=== PATIENT | female | born 1965 | race Caucasian/White ===

== ENCOUNTER 2018-05-10 18:13 | Emergency (ER) | payer OTHER, MEDICARE ==
[2018-05-10 18:28] VITALS: RESP 18
[2018-05-10 19:19] LABS: Basophils # (A) 0.1 k/uL (0-0.2); Basophils % (A) 1 %; Eosinophils # (A) 0.2 k/uL (0-0.7); Eosinophils % (A) 3 %; HCT 43.8 % (34.0-46.0); HGB 14.5 gm/dL (11.4-16.0); Lymphocytes # (A) 2.4 k/uL (1.0-4.8); Lymphocytes % (A) 44 %; MCH 31.2 pg (25.0-35.0); MCHC 33.2 g/dL (31.0-37.0); MCV 93.9 fL (80.0-100.0); Mean Platelet Volume 7.5; Monocytes # (A) 0.2 k/uL (0-1.0); Monocytes % (A) 4 %; Neutrophils # (A) 2.5 k/uL (1.3-7.7); Neutrophils % (A) 46 %; Platelet Count 252 k/uL (150-450); RBC 4.66 m/uL (3.80-5.40); WBC 5.4 k/uL (3.8-10.6)
[2018-05-10 19:27] LABS: Albumin 4.6 g/dL (3.5-5.0); Calcium 9.7 mg/dL (8.4-10.2); Potassium 4.2 mmol/L (3.5-5.1); Total Bilirubin 0.3 mg/dL (0.2-1.3); Total Protein 7.3 g/dL (6.3-8.2)
[2018-05-10 19:32] LABS: Appearance,Urine Cloudy (Clear); Bacteria,Urine Rare /hpf; Bilirubin,Urine Negative (Negative); Blood,Urine Negative (Negative); Color,Urine Light Yellow; Glucose,Urine (UA) Negative (Negative); Ketones,Urine Negative (Negative); Leukocyte Esterase,Urine Trace (Negative); Mucus,Urine Rare /hpf; Nitrite,Urine Negative (Negative); PH, Urine 6.5 (5.0-8.0); Protein,Urine Negative (Negative); RBC,Urine <1 /hpf (0-5); Specific Gravity,Urine 1.006 (1.001-1.035); Squamous Epithelial Cell,Urine 9 /hpf (0-4); Urobilinogen,Urine <2.0 mg/dL (<2.0); WBC,Urine 5 /hpf (0-5)
[2018-05-10] MEDS ORDERED: SODIUM CHLORIDE 0.9% 1,000 ML IV ONE (21:59)
[2018-05-10] MEDS ORDERED: HYDROmorphone 0.5 MG/0.5 ML SYRINGE IVP STA (22:00)
--- NOTE | 2018-05-10 22:31 | ED ---
General Adult HPI - General Chief complaint: Abdominal Pain Stated complaint: rt side pain Time Seen by Provider: 05/10/18 21:52 Source: patient, RN notes reviewed, old records reviewed Mode of arrival: wheelchair Limitations: no limitations - History of Present Illness Initial comments: 52-year-old female presenting with right lower quadrant abdominal pain. Patient has had on and off pain for the past one month. She was seen by her primary care physician who felt this may be related to hernia and ordered an ultrasound. While patient was driving home her pain became much more severe. This was worse with movement. She had some nausea, no vomiting. She does have baseline diarrhea although this is unchanged and she has a history of IBS. Denies any upper abdominal pain. Denies chest pain or shortness of breath. Denies fever or chills. Pain was severe and nonradiating. - Related Data Home Medications Medication Instructions Recorded Confirmed ALPRAZolam [Xanax] 0.25 mg PO BID PRN 05/10/18 05/10/18 Acetaminophen/Diphenhydramine 1 tab PO HS PRN 05/10/18 05/10/18 [Tylenol PM Extra Strength] Butalb/APAP/Caff 50-325-40Mg 1 tab PO Q4H PRN 05/10/18 05/10/18 [Fioricet 50-325-40] Dicyclomine [Bentyl] 10 mg PO BID 05/10/18 05/10/18 Omeprazole [PriLOSEC] 40 mg PO DAILY 05/10/18 05/10/18 Topiramate [Topamax] 100 mg PO BID 05/10/18 05/10/18 amLODIPine [Norvasc] 5 mg PO DAILY 05/10/18 05/10/18 Allergies Allergy/AdvReac Type Severity Reaction Status Date / Time morphine Allergy Nausea & Verified 05/10/18 22:01 Vomiting Review of Systems ROS Statement: Those systems with pertinent positive or pertinent negative responses have been documented in the HPI. ROS Other: All systems not noted in ROS Statement are negative. Past Medical History Past Medical History: Hypertension History of Any Multi-Drug Resistant Organisms: None Reported Past Surgical History: Back Surgery, Cholecystectomy Additional Past Surgical History / Comment(s): breast reduction, Past Psychological History: Anxiety Smoking Status: Current every day smoker Past Alcohol Use History: Occasional Past Drug Use History: None Reported General Exam Limitations: no limitations General appearance: alert, in no apparent distress Head exam: Present: atraumatic, normocephalic Eye exam: Present: normal appearance, PERRL, EOMI ENT exam: Present: normal exam Neck exam: Present: normal inspection. Absent: tenderness, meningismus Respiratory exam: Present: normal lung sounds bilaterally. Absent: respiratory distress, wheezes Cardiovascular Exam: Present: tachycardia, irregular rhythm GI/Abdominal exam: Present: soft, tenderness (Right lower quadrant tenderness). Absent: distended, guarding, rebound Extremities exam: Present: normal inspection, other (Distal pulses intact). Absent: full ROM, tenderness Back exam: Present: normal inspection. Absent: full ROM, tenderness Neurological exam: Present: alert, oriented X3, CN II-XII intact. Absent: motor sensory deficit Psychiatric exam: Present: normal affect, normal mood Skin exam: Present: warm, dry, intact. Absent: cyanosis, diaphoretic Course Vital Signs 05/10/18 05/10/18 05/10/18 18:25 21:48 22:36 Temperature 99.5 F 98.4 F Pulse Rate 84 79 79 Respiratory 18 18 18 Rate Blood Pressure 138/86 193/91 135/92 O2 Sat by Pulse 98 99 99 Oximetry - Reevaluation(s) Reevaluation #1: 05/11/18 00:09 On reevaluation, patient is feeling much better. Medical Decision Making - Medical Decision Making 52-year-old female with abdominal pain. This probably right lower quadrant. Labs are performed, normal CBC, normal CMP, normal lactic acid and clear urinalysis. CT is performed with IV contrast, this is negative for any acute intra-abdominal process, negative for appendicitis. There is a 2 cm ovarian cyst. On reevaluation, patient states she is feeling much better. Further history indicates patient has been dealing with this pain for many years. She will continue to follow up with her primary care physician. Return with worsening or changing symptoms. - Lab Data Result diagrams: 05/10/18 19:03 05/10/18 19:03 Lab Results 05/10/18 05/10/18 05/10/18 Range/Units 19: 19:03 19:25 WBC 5.4 (3.8-10.6) k/uL RBC 4.66 (3.80-5.40) m/uL Hgb 14.5 (11.4-16.0) gm/dL Hct 43.8 (34.0-46.0) % MCV 93.9 (80.0-100.0) fL MCH 31.2 (25.0-35.0) pg MCHC 33.2 (31.0-37.0) g/dL RDW 14.0 (11.5-15.5) % Plt Count 252 (150-450) k/uL Neutrophils % 46 % Lymphocytes % 44 % Monocytes % 4 % Eosinophils % 3 % Basophils % 1 % Neutrophils # 2.5 (1.3-7.7) k/uL Lymphocytes # 2.4 (1.0-4.8) k/uL Monocytes # 0.2 (0-1.0) k/uL Eosinophils # 0.2 (0-0.7) k/uL Basophils # 0.1 (0-0.2) k/uL Sodium 142 (137-145) mmol/L Potassium 4.2 (3.5-5.1) mmol/L Chloride 109 H (98-107) mmol/L Carbon Dioxide 23 (22-30) mmol/L Anion Gap 10 mmol/L BUN 12 (7-17) mg/dL Creatinine 1.00 (0.52-1.04) mg/dL Est GFR (CKD-EPI)AfAm 75 (>60 ml/min/1.73 sqM) Est GFR (CKD-EPI)NonAf 65 (>60 ml/min/1.73 sqM) Glucose 88 (74-99) mg/dL Plasma Lactic Acid Florencio (0.7-2.0) mmol/L Calcium 9.7 (8.4-10.2) mg/dL Total Bilirubin 0.3 (0.2-1.3) mg/dL AST 28 (14-36) U/L ALT 45 (9-52) U/L Alkaline Phosphatase 89 (38-126) U/L Total Protein 7.3 (6.3-8.2) g/dL Albumin 4.6 (3.5-5.0) g/dL Amylase 99 (30-110) U/L Lipase 132 (23-300) U/L Urine Color Light Yellow Urine Appearance Cloudy H (Clear) Urine pH 6.5 (5.0-8.0) Ur Specific Diagonal 1.006 (1.001-1.035) Urine Protein Negative (Negative) Urine Glucose (UA) Negative (Negative) Urine Ketones Negative (Negative) Urine Blood Negative (Negative) Urine Nitrite Negative (Negative) Urine Bilirubin Negative (Negative) Urine Urobilinogen <2.0 (<2.0) mg/dL Ur Leukocyte Esterase Trace H (Negative) Urine RBC <1 (0-5) /hpf Urine WBC 5 (0-5) /hpf Ur Squamous Epith Cells 9 H (0-4) /hpf Urine Bacteria Rare H (None) /hpf Urine Mucus Rare H (None) /hpf 05/10/18 Range/Units 22:32 WBC (3.8-10.6) k/uL RBC (3.80-5.40) m/uL Hgb (11.4-16.0) gm/dL Hct (34.0-46.0) % MCV (80.0-100.0) fL MCH (25.0-35.0) pg MCHC (31.0-37.0) g/dL RDW (11.5-15.5) % Plt Count (150-450) k/uL Neutrophils % % Lymphocytes % % Monocytes % % Eosinophils % % Basophils % % Neutrophils # (1.3-7.7) k/uL Lymphocytes # (1.0-4.8) k/uL Monocytes # (0-1.0) k/uL Eosinophils # (0-0.7) k/uL Basophils # (0-0.2) k/uL Sodium (137-145) mmol/L Potassium (3.5-5.1) mmol/L Chloride (98-107) mmol/L Carbon Dioxide (22-30) mmol/L Anion Gap mmol/L BUN (7-17) mg/dL Creatinine (0.52-1.04) mg/dL Est GFR (CKD-EPI)AfAm (>60 ml/min/1.73 sqM) Est GFR (CKD-EPI)NonAf (>60 ml/min/1.73 sqM) Glucose (74-99) mg/dL Plasma Lactic Acid Florencio 0.9 (0.7-2.0) mmol/L Calcium (8.4-10.2) mg/dL Total Bilirubin (0.2-1.3) mg/dL AST (14-36) U/L ALT (9-52) U/L Alkaline Phosphatase (38-126) U/L Total Protein (6.3-8.2) g/dL Albumin (3.5-5.0) g/dL Amylase (30-110) U/L Lipase (23-300) U/L Urine Color Urine Appearance (Clear) Urine pH (5.0-8.0) Ur Specific Diagonal (1.001-1.035) Urine Protein (Negative) Urine Glucose (UA) (Negative) Urine Ketones (Negative) Urine Blood (Negative) Urine Nitrite (Negative) Urine Bilirubin (Negative) Urine Urobilinogen (<2.0) mg/dL Ur Leukocyte Esterase (Negative) Urine RBC (0-5) /hpf Urine WBC (0-5) /hpf Ur Squamous Epith Cells (0-4) /hpf Urine Bacteria (None) /hpf Urine Mucus (None) /hpf Disposition Clinical Impression: Abdominal pain Disposition: HOME SELF-CARE Condition: Good Instructions: Abdominal Pain (ED) Is patient prescribed a controlled substance at d/c from ED?: No Referrals: Nonstaff,Physician [Primary Care Provider] - 1-2 days Decision to Admit Reason: Admit from EC Decision Date: 05/11/18 Decision Time: 00:10
--- NOTE | 2018-05-10 23:21 | CT ---
EXAMINATION TYPE: CT abdomen pelvis w con DATE OF EXAM: 05/10/2018 COMPARISON: NONE HISTORY: RLQ pain CT DLP: 630.00 mGycm Automated exposure control for dose reduction was used. TECHNIQUE: Helical acquisition of images was performed from the lung bases through the pelvis. CONTRAST: Performed without Oral Contrast and with IV Contrast, patient injected with 100 mL of Isovue 300. FINDINGS: Lung bases are clear. There is no pleural effusion. Heart size is normal. There is no pericardial eff usion. Liver spleen pancreas appear normal. There are clips from cholecystectomy. Bile ducts are not dilated. There is no adrenal mass. Kidneys show satisfactory contrast opacification. There is no hydr onephrosis. There is no retroperitoneal adenopathy. There is no ascites. I see no intestinal wall thickening. There are no dilated loops. Bladder distend s smoothly. Appendix appears normal. Appendix is partly filled with air. Uterus is anteverted. There is no evidence of a pelvic mass. Lumbar vertebra have normal alignment. I see no bony destructive pro cess. There is probably a 2 cm cyst on the right ovary. IMPRESSION: SMALL LEFT OVARIAN CYST. NORMAL APPENDIX. NO EVIDENCE OF RENAL STONE OR OBSTRUCTION.
[2018-05-11 00:19] VITALS: BP 123/61; PULSE 73; TEMP 97.8
== END 2018-05-11 00:21 | disposition home or self-care (01) ==
LOC: EC 18:13
DX: R10.31 Right lower quadrant pain (principal); R11.0 Nausea; R19.7 Diarrhea, unspecified; N83.202 Unspecified ovarian cyst, left side; I10 Essential (primary) hypertension; F41.9 Anxiety disorder, unspecified; F17.200 Nicotine dependence, unspecified, uncomplicated; Z90.49 Acquired absence of other specified parts of digestive tract; Z98.890 Other specified postprocedural states; Z79.899 Other long term (current) drug therapy; Z88.5 Allergy status to narcotic agent
CPT/HCPCS: 36415; 80053; 82150; 83605; 83690; 85025; 81001; 74177; 99284; 96374; 96361; J1170; Q9967

== ENCOUNTER → 2019-07-25 | Outpatient (CLI) | payer BC, MEDICARE ==
--- NOTE | 2019-07-25 13:16 | MM ---
Reason for exam: screening (asymptomatic). Last mammogram was performed 1 year and 8 months ago. History: Patient is nulliparous. Family history of breast cancer in mother. Benign excisional biopsy of the right breast, 2006. Took hormonal contraceptives for 5 years. Physical Findings: A clinical breast exam by your physician is recommended on an annual basis and results should be correlated with mammographic findings. MG 3D Screening Mammo W/Cad Bilateral CC and MLO view(s) were taken. Prior study comparison: December 02, 2017, mammogram. August 20, 2016, mammogram. There are scattered fibroglandular densities. Finding #1: Architectural distortion and dystrophic calcifications in the right breast. Finding #2: There are typically benign round calcifications in both breasts. There is no new dominant lesion. ASSESSMENT: Benign, BI-RAD 2 RECOMMENDATION: Routine screening mammogram of both breasts in 1 year.
== END ==
LOC: RADMAMWWP 11:26
PROVIDERS: ATTEND Obstetrics & Gynecology Obstetrics
DX: Z12.31 Encounter for screening mammogram for malignant neoplasm of breast (principal)
CPT/HCPCS: 77063; 77067